=== PATIENT | female | born 1990 | race Caucasian/White ===

== ENCOUNTER 2025-03-28 13:05 | Emergency (ER) | payer BC, SELFPAY ==
[2025-03-28 13:13] VITALS: BP 130/84
--- NOTE | 2025-03-28 14:43 | ED.GENMED ---
History of Present Illness
<EVERTON Cavazos Jr. Last Filed: 03/30/25 03:36>
General
Chief Complaint: Abdominal Pain
Source: patient
Exam Limitations: none
Time Seen by Provider: 03/28/25 14:21
Nursing documentation reviewed up to this point in time: agreed with
History of Present Illness
History of Present Illness:
34-year-old female presenting to the emergency department today with concerns of abdominal bloating nausea for the past 2 days mainly to the right lower quadrant right pelvic area. Also does have some pain to the upper abdomen some nausea no
vomiting no significant constipation or diarrhea. No fevers. No vaginal discharge or bleeding. Seem to occur after having intercourse.
Review of Systems
<EVERTON Cavazos Jr. Last Filed: 03/30/25 03:36>
Review of Systems
Allergies reviewed?: Yes
All Other Systems: ROS reviewed and negative except as documented in HPI and ROS
Phy Exam
<EVERTON Cavazos Jr. Last Filed: 03/30/25 03:36>
Physical Exam
Physical Exam:
GENERAL: Alert , in no apparent distress
EYE: pupils equal and reactive
NECK: Supple, no significant adenopathy.
ENT: o/p clr, mmm.
CARDIAC: Regular rate and rhythm .
LUNGS: Clear breath sounds bilaterally, no acute respiratory distress, no wheezes/rales/rhonchi
ABDOMEN: Pain to the right lower quadrant of the abdomen some minimal discomfort to the epigastrium as well left side of the abdomen soft and nontender
NEUROLOGICAL: Alert and oriented, no focal neuro deficits
SKIN: Warm and dry, skin intact.
MUSCULOSKELETAL: No edema, well perfused.
PSYCH: Normal and appropriate interaction.
Course
<EVERTON Cavazos Jr. Last Filed: 03/30/25 03:36>
Orders/Labs/Results
Orders:
Orders
03/28/25 14:53
IV Insert/Care/Rem.- Treatment PRN
03/28/25 14:54
Test Result ONCE
03/28/25 14:59
CT Abd/pel W Iv And Oral Contr Urgent
Comment:
Reason For Exam: rlq pain
Iohexol [Omnipaque] See Protocol PO NOW STA
US Pelvis Only (non-obstetric) Urgent
Comment:
Reason For Exam: right pelvic pain
03/28/25 15:02
Complete Blood Count/With Diff Urgent
Urinalysis Reflex To Culture Urgent
Date Specimen was Collected: 03/28/25
Time Specimen was Collected: 14:54
03/28/25 15:05
0.9% Sodium Chloride 500 ml [Nss] 1,000 ml IV BOLUS
03/28/25 16:14
Comprehensive Metabolic Panel Urgent
HCG, Serum Qualitative Screen Urgent
Abnormal Lab Results
03/28/25 03/28/25
15:02 16:14
RBC 4.06 L 10^6/uL
(4.20-5.40)
Hct 36.3 L %
(37.0-47.0)
MCH 31.3 H pg
(27.0-31.0)
Chloride 110 H mmol/L
(98-107)
Creatinine 0.5 L mg/dL
(0.6-1.0)
Urine Ketones 1+ A
(Negative)
03/28/25 15:02
03/28/25 16:14
Vital Signs
Initial and Last Documented VS:
Initial Vital Signs
Temp Pulse Resp BP Pulse Ox
98.6 F 67 16 130/84 97
03/28/25 13:13 03/28/25 13:13 03/28/25 13:13 03/28/25 13:13 03/28/25 13:13
Last Documented Vital Signs
Temp Pulse Resp BP Pulse Ox
98.6 F 60 14 117/61 100
03/28/25 13:13 03/28/25 18:25 03/28/25 18:25 03/28/25 18:25 03/28/25 18:25
<Flores Robbins, SKYE - Last Filed: 03/29/25 00:45>
Orders/Labs/Results
Orders:
Orders
03/28/25 14:53
IV Insert/Care/Rem.- Treatment PRN
03/28/25 14:54
Test Result ONCE
03/28/25 14:59
CT Abd/pel W Iv And Oral Contr Urgent
Comment:
Reason For Exam: rlq pain
Iohexol [Omnipaque] See Protocol PO NOW STA
US Pelvis Only (non-obstetric) Urgent
Comment:
Reason For Exam: right pelvic pain
03/28/25 15:02
Complete Blood Count/With Diff Urgent
Urinalysis Reflex To Culture Urgent
Date Specimen was Collected: 03/28/25
Time Specimen was Collected: 14:54
03/28/25 15:05
0.9% Sodium Chloride 500 ml [Nss] 1,000 ml IV BOLUS
03/28/25 16:14
Comprehensive Metabolic Panel Urgent
HCG, Serum Qualitative Screen Urgent
Abnormal Lab Results
03/28/25 03/28/25
15:02 16:14
RBC 4.06 L 10^6/uL
(4.20-5.40)
Hct 36.3 L %
(37.0-47.0)
MCH 31.3 H pg
(27.0-31.0)
Chloride 110 H mmol/L
(98-107)
Creatinine 0.5 L mg/dL
(0.6-1.0)
Urine Ketones 1+ A
(Negative)
03/28/25 15:02
03/28/25 16:14
Vital Signs
Initial and Last Documented VS:
Initial Vital Signs
Temp Pulse Resp BP Pulse Ox
98.6 F 67 16 130/84 97
03/28/25 13:13 03/28/25 13:13 03/28/25 13:13 03/28/25 13:13 03/28/25 13:13
Last Documented Vital Signs
Temp Pulse Resp BP Pulse Ox
98.6 F 60 14 117/61 100
03/28/25 13:13 03/28/25 18:25 03/28/25 18:25 03/28/25 18:25 03/28/25 18:25
<Channing Bose DO - Last Filed: 03/28/25 19:35>
Orders/Labs/Results
Orders:
Orders
03/28/25 14:53
IV Insert/Care/Rem.- Treatment PRN
03/28/25 14:54
Test Result ONCE
03/28/25 14:59
CT Abd/pel W Iv And Oral Contr Urgent
Comment:
Reason For Exam: rlq pain
Iohexol [Omnipaque] See Protocol PO NOW STA
US Pelvis Only (non-obstetric) Urgent
Comment:
Reason For Exam: right pelvic pain
03/28/25 15:02
Complete Blood Count/With Diff Urgent
Urinalysis Reflex To Culture Urgent
Date Specimen was Collected: 03/28/25
Time Specimen was Collected: 14:54
03/28/25 15:05
0.9% Sodium Chloride 500 ml [Nss] 1,000 ml IV BOLUS
03/28/25 16:14
Comprehensive Metabolic Panel Urgent
HCG, Serum Qualitative Screen Urgent
Abnormal Lab Results
03/28/25 03/28/25
15:02 16:14
RBC 4.06 L 10^6/uL
(4.20-5.40)
Hct 36.3 L %
(37.0-47.0)
MCH 31.3 H pg
(27.0-31.0)
Chloride 110 H mmol/L
(98-107)
Creatinine 0.5 L mg/dL
(0.6-1.0)
Urine Ketones 1+ A
(Negative)
03/28/25 15:02
03/28/25 16:14
Vital Signs
Initial and Last Documented VS:
Initial Vital Signs
Temp Pulse Resp BP Pulse Ox
98.6 F 67 16 130/84 97
03/28/25 13:13 03/28/25 13:13 03/28/25 13:13 03/28/25 13:13 03/28/25 13:13
Last Documented Vital Signs
Temp Pulse Resp BP Pulse Ox
98.6 F 60 14 117/61 100
03/28/25 13:13 03/28/25 18:25 03/28/25 18:25 03/28/25 18:25 03/28/25 18:25
<Homer Shaikh Jr., PA-C - Last Filed: 03/30/25 03:36>
MDM/Problems Addressed
MDM/Problems Addressed:
34-year-old female presenting to the emergency department today with concerns of abdominal pain mainly to the right lower quadrant and right pelvic area. Ongoing for the past 2 days. Denies any fevers. 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
reproducible discomfort in pelvic exam to the right pelvic region but seemed to have more pain to the right abdomen. Vital signs stable on arrival does have reproducible tenderness to the right lower quadrant. She refused the pelvic examination
here considering she just had 1 yesterday. Plan for ultrasound initially pending additional CT as needed.
<Flores Robbins [employer] - Last Filed: 03/29/25 00:45>
MDM/Problems Addressed
MDM/Problems Addressed:
34-year-old female presenting to the emergency department today with concerns of abdominal pain mainly to the right lower quadrant and right pelvic area. Ongoing for the past 2 days. Denies any fevers. 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
reproducible discomfort in pelvic exam to the right pelvic region but seemed to have more pain to the right abdomen. Vital signs stable on arrival does have reproducible tenderness to the right lower quadrant. She refused the pelvic examination
here considering she just had 1 yesterday. Plan for ultrasound initially pending additional CT as needed.
7:00 PM:
CAT scan report received: IMPRESSION:
There is a 2.6 x 2.4 cm mildly complex cyst in the right adnexa which may represent a hemorrhagic cyst. There is small volume mildly complex free fluid in the pelvis which may represent blood products in the setting of ruptured ovarian cyst.
Recommend short interval follow-up pelvic ultrasound to ensure resolution.
The appendix is well visualized and appears within normal limits.
There is trace perihepatic free fluid along the inferior edge of the liver which is nonspecific.
Discussed results with patient, given patient copy of the report
Recommended ibuprofen as needed for pain
Follow-up with [facility] for repeat ultrasound in 2 to 3 weeks
Patient appears comfortable, ambulated out with normal gait at discharge.
<Homer Shaikh Jr., PA-C - Last Filed: 03/30/25 03:36>
*Pulse Oximetry
SaO2: 97
Oxygen Mode of Delivery: Room air
<Flores Robbins, [employer]PER[employer] - Last Filed: 03/29/25 00:45>
*Pulse Oximetry
Patient hypoxic: not evaluated
*Critical Care Note
Total Time (30-74mins, 75-104mins- exclusive of procedures): Not Applicable
ED Attending Note
<Homer Shaikh Jr., PA-C - Last Filed: 03/30/25 03:36>
-
Portions of this chart may have been created with voice recognition software.� Occasional wrong word or��sound alike� substitutions may have occurred due to the inherent limitations of voice recognition software.
<Channing Bose, DO - Last Filed: 03/28/25 19:35>
ED Attending Note
Patient seen and examined by attending physician: Yes
I performed the substantive portion of visit, reviewed & personally made and approve the management plan that is documented in note by myself or ELLY.: Yes
ED Attending Note:
I evaluated the patient bedside. The patient appears comfortable. Although ultrasound imaging showed no clear sign of cyst, CT imaging does suggest a 2.5 cm cyst on the right side which is described as complex.
Discharge Plan
Departure
Patient Disposition: Home (Routine Discharge)
Date of Disposition: 03/28/25
Time of Disposition: 18:59
Patient with high blood pressure during this ER visit?: No
Condition: Good
Discharge Problem:
Rupture of cyst of right ovary
Instructions: Ovarian Cyst (DC), Abdominal Pain
Referrals:
Your [facility] doctor [Other] - Call in 1-3 days for appt
Gerald Dutta MD [Family Provider, Internal Medicine]
Activity Restrictions/Additional Instructions:
As we discussed, it appears as though you have had a ruptured ovarian cyst.
Call your [facility] doctor and make an appointment for sometime within the next month for repeat ultrasound to be sure it has resolved.
Ibuprofen 600 mg, with food, every 6 hours as needed for pain.
Interventions
Interventions:
*Risk Screen - Suicide Last Done: 03/28/25 13:13
*General Assessment Last Done: 03/28/25 14:48
*Neglect/Abuse Screening Last Done: 03/28/25 13:13
*ED- Fall Risk Assessment Last Done: 03/28/25 14:48
*ED COVID-19 Vaccine History Last Done: 03/28/25 14:48
*Nursing Disposition Last Done: 03/28/25 19:31
HX-Nxyaxx-Hipgooxyvh Assessment Last Done: 03/28/25 15:00
Discharge Date and Time
Discharge Date/Time: 03/28/25 19:35
Print Language: FILIPINO
[2025-03-28 14:48] VITALS: BMI 21.8
--- NOTE | 2025-03-28 14:49 | EDRN ---
Pt states she has mid abdominal pain since Thursday and R lower abd is tender. Pt feels bloated, no appetite, nausea started today no V. Pain is 7/10, described as crampy and achy, increases w/ palpation and intermittently. Last BM this am and
reported as smaller than her normal. No urinary symptoms now but when first started Thursday am and on Thursday had pain w/ voiding, none since Thursday AM. Pt thinks intercourse may have triggered it as could hardly move or stand up post intercourse. Pt
has history of ovarian cysts but concerned about amount, length of pain. Pt also ate raw tuna on Thursday.
[2025-03-28 15:00] VITALS: BP 116/80
[2025-03-28] MEDS: NSS 1000 IV (15:05)
[2025-03-28] MEDS: OMNIPAQUE 50 ML PO (15:10)
[2025-03-28 15:16] LABS: Hematocrit 36.3 % (37.0-47.0); Hemoglobin 12.7 g/dL (12.0-16.0); Mean Corp Hgb Conc. 35.0 g/dL (33.0-37.0); Mean Corpuscular Volume 89.4 fL (81.0-99.0); Nucleated Red Blood Cells % 0 %; Platelet Count 253 10^3/uL (130-400); Red Cell Dist. Width 12.1 % (11.5-14.5); Urine Character Clear (Clear)
[2025-03-28 16:15] VITALS: BP 116/69
--- NOTE | 2025-03-28 16:18 | EDRN ---
SST blood tube was hemolyzed and just redrawn and sent at this tim3e.
[2025-03-28 16:34] LABS: HCG, Serum Qualitative Screen Negative
[2025-03-28 16:37] LABS: ALT (SGPT) 11 U/L (0-35); AST (SGOT) 14 U/L (14-36); Albumin 4.3 g/dl (3.5-5.0); Alkaline Phosphatase 63 U/L (38-126); Blood Urea Nitrogen 8 mg/dl (7-17); Calcium 9.1 mg/dl (8.4-10.2); Carbon Dioxide 24 mmol/L (22-30); Chloride 110 mmol/L (98-107); Estimated Creatinine Clearance 106 ml/min; Glucose 87 mg/dl (70-99); Potassium 4.0 mmol/L (3.5-5.1); Sodium 139 mmol/L (135-145); Total Protein 6.4 g/dl (6.3-8.2); eGFR > 60.00
[2025-03-28 18:25] VITALS: BP 117/61
== END 2025-03-28 19:35 | disposition home or self-care (01) ==
LOC: EMR 13:05
PROVIDERS: Physician Assistant; EMERGENCY PHYSICIAN Emergency Medicine; FAMILY PHYSICIAN Internal Medicine
DX: N83.201 Unspecified ovarian cyst, right side (principal)
CPT/HCPCS: 96360; 99284; 74177; 76856; 80053; 81003; 84703; 85025; Q9967